=== PATIENT | female | born 1990 | race Caucasian/White ===

== ENCOUNTER 2019-01-02 13:30 | Inpatient (IN) | payer OTHER ==
--- NOTE | 2019-01-02 14:08 | HP ---
Past Medical History - Admission Chief Complaint: Labor pain History of Present Illness: 28 yo @ 39 weeks gestation with early labor sent for admission. She was seen in office today and was found to be 4cm dilated. There's also suspicion of macrosomia. History Source: Patient Limitations to Obtaining History: No Limitations - Past Medical History ...: 2 ...Para: 1 ...EDC by Amanda: 01/07/19 - Past Surgical History Past Surgical History: Yes: None Hx Myomectomy: No Hx Transabdominal Cerclage: No - Smoking History Smoking history: Never smoked Have you smoked in the past 12 months: No - Alcohol/Substance Use Hx Alcohol Use: No History of Substance Use: reports: None - Social History Usual Living Arrangement: Yes: With Spouse History of Recent Travel: No Home Medications - Allergies Allergies/Adverse Reactions: Allergies Allergy/AdvReac Type Severity Reaction Status Date / Time No Known Allergies Allergy Verified 06/11/15 01:51 - Home Medications Home Medications: Ambulatory Orders Vitamins ([facility]) - 1 tab PO DAILY 05/17/15 Family Disease History - Family Disease History Family History: Unremarkable Review of Systems - Review of Systems Constitutional: reports: No Symptoms Eyes: reports: No Symptoms HENT: reports: No Symptoms Neck: reports: No Symptoms Cardiovascular: reports: No Symptoms Respiratory: reports: No Symptoms Gastrointestinal: reports: No Symptoms Genitourinary: reports: Pain Breasts: reports: No Symptoms Reported Musculoskeletal: reports: No Symptoms Integumentary: reports: No Symptoms Neurological: reports: No Symptoms Endocrine: reports: No Symptoms Hematology/Lymphatic: reports: No Symptoms Psychiatric: reports: No Symptoms Pain Intensity: 3 Physical Exam - Maternity Eyes: Yes: Conjunctiva Clear HENT: Yes: Atraumatic Neck: Yes: Supple Cardiovascular: Yes: Regular Rate and Rhythm Lungs: Clear to auscultation - Vaginal Exam/OB Speculum Exam: No Dilatation (cm): 4 Effacement (%): 70 Amniotic Membrane Status: Intact Presentation: Vertex/Position Station: -2 - Physical Exam Musculoskeletal: Yes: WNL Extremities: Yes: WNL ...Motor Strength: WNL Psychiatric: Yes: Alert, Oriented Problem List - Problems (1) 39 weeks gestation of Code(s): Z3A.39 - 39 WEEKS GESTATION OF Assessment/Plan 39 weeks gestation Suspicion of macrosomia Early labor Admit to L&D Analgesia as needed Anticipate
[2019-01-02 14:22] VITALS: BMI 39.6
[2019-01-02] MEDS: ELECTROLYTE-148 SOLN 1,000 ML IV SCH ×2 (14:40→19:45)
[2019-01-02] MEDS ORDERED: OXYTOCIN 30 UNITS in 0.9% NS 30 UNIT/500 ML INFUS.BAG IVPB SCH (15:45)
[2019-01-02 15:50] LABS: BASO % 0.3 % (0-2.0); HEMATOCRIT 39.4 % (32.4-45.2); HEMOGLOBIN 13.4 GM/dL (10.7-15.3); LYMPH % 14.9 % (8-40); MEAN CELL VOLUME 88.2 fl (80-96); MEAN PLT VOLUME 9.4 fl (7.5-11.1); MONO % 6.2 % (3.8-10.2); NEUT % 78.6 % (42.8-82.8); PLATELET COUNT 188 K/MM3 (134-434); RBC 4.47 M/mm3 (3.60-5.2); RDW 14.2 % (11.6-15.6); WHITE BLOOD COUNT 8.9 K/mm3 (4.0-10.0)
[2019-01-02 15:56] LABS: ANION GAP 7 MMOL/L (8-16); BLOOD UREA NITROGEN 10 mg/dL (7-18); CALCIUM 8.5 mg/dL (8.5-10.1); CHLORIDE 106 mmol/L (98-107); CO2 24 mmol/L (21-32); CREATININE 0.4 mg/dL (0.55-1.3); GLUCOSE,RANDOM 70 mg/dL (74-106); SODIUM 138 mmol/L (136-145)
[2019-01-02 16:35] LABS: INR 0.89 (0.83-1.09); PROTHROMBIN TIME (PATIENT) 10.5 SEC (9.7-13.0)
[2019-01-02 16:38] LABS: ACTIVATED PTT 26.6 SECONDS (25.2-36.5)
[2019-01-02] MEDS ORDERED: OXYTOCIN 30 UNITS in 0.9% NS 30 UNIT/500 ML INFUS.BAG IVPB ONE (16:42)
[2019-01-02] MEDS ORDERED: FENTANYL/BUPIVACAINE/NS/PF - PCEA - 50 ML DISP.SYRIN EP ONE ×2 (19:16→23:06)
[2019-01-02] MEDS ORDERED: NALOXONE HCL 0.4 MG/ML VIAL IVPUSH PRN (19:37)
[2019-01-02] MEDS ORDERED: LIDO 2%/EPI 1:200000 PRESRVFRE (20 ML SDVIAL) ONE (19:42)
[2019-01-02] MEDS: FENTANYL/BUPIVACAINE/NS/PF - PCEA - 50 ML DISP.SYRIN EP SCH (20:00)
[2019-01-02] MEDS ORDERED: PHENYLEPHRINE HCL 10 MG/1 ML SINGLE DOSE VIAL ONE (20:02)
[2019-01-02] MEDS ORDERED: BUPIVACAINE HCL/PF 0.25% (2.5MG/ML) 10 ML VIAL ONE (23:00)
[2019-01-02] MEDS ORDERED: LIDOCAINE HCL 1% PRESERVATIVE FREE - 30ML VIAL ONE (23:46)
[2019-01-02] MEDS ORDERED: OXYTOCIN 20 UNITS in 0.9% NS 20 UNIT/1,000 ML INFUS.BAG IV ONE (23:46)
[2019-01-03] MEDS ORDERED: BENZOCAINE 28 GM HEMORRHOIDAL OINTMENT TP PRN (00:32)
[2019-01-03] MEDS ORDERED: BENZOCAINE 20% 57 GM BOTTLE TP PRN (00:32)
[2019-01-03] MEDS ORDERED: BISACODYL 10 MG SUPP.RECT RC PRN (00:32)
[2019-01-03] MEDS ORDERED: METHYLERGONOVINE MALEATE 0.2 MG/1 ML AMP IM PRN (00:32)
[2019-01-03] MEDS ORDERED: WITCH HAZEL 50% (TUCKS) 40 PAD/JAR PAD TP PRN (00:32)
--- NOTE | 2019-01-03 00:36 | PN ---
Delivery - Delivery Vaginal Delivery: Spontaneous Type of Anesthesia: Epidural Episiotomy/Laceration: 1st degree EBL (cc): 300 Delivery, Single - Feeding Plan Initial Plan: Elected not to breastfeed exclusively throughout hospitalization Remarks - Remarks Remarks: Normal spontaneous vaginal delivery of a live infant girl over first degree laceration. Nose / Oropharynxnx suctioned @ perineum. Cord clamped and cut. Baby handed to nurse. Placenta expelled spontaneously intact. Laceration repaired with 2.0 chromic
[2019-01-03] MEDS ORDERED: OXYTOCIN 20 UNITS in 0.9% NS 20 UNIT/1,000 ML INFUS.BAG IV SCH (00:45)
[2019-01-03] MEDS ORDERED: ACETAMINOPHEN 325 MG TABLET (FP) ONE (00:55)
[2019-01-03] MEDS ORDERED: IBUPROFEN 600 MG TABLET (FP) PO ONE (00:55)
[2019-01-03] MEDS: ACETAMINOPHEN 325 MG TABLET (FP) PO PRN ×3 (00:59→20:46)
[2019-01-03] MEDS: IBUPROFEN 600 MG TABLET (FP) PO PRN ×3 (01:00→20:46)
[2019-01-03] MEDS ORDERED: PROMETHAZINE HCL 25 MG/1 ML VIAL IVPB PRN (02:46)
[2019-01-03] MEDS: FERROUS SO4 325 MG TABLET (FP) PO SCH ×2 (08:17→17:23)
--- NOTE | 2019-01-03 09:57 | PN ---
Post Progress Note - Subjective Subjective: PT seen/examined and doing well. VB decreasing. NO pain. Tolerating diet, ambulating, voiding. Type of Delivery: Vital Signs: Vital Signs Temperature 98.4 F 01/03/19 07:50 Pulse Rate 79 01/03/19 07:50 Respiratory Rate 20 01/03/19 07:50 Blood Pressure 138/81 01/03/19 07:50 O2 Sat by Pulse Oximetry (%) 99 01/02/19 23:45 Uterus: Yes: Fundus Firm Abdomen/GI: Yes: Abdomen soft Lochia: Yes: Rubra Lochia, amount: Small Extremities: Yes: Edema (1+ edema on B/L LE, nonpitting) Activity: Ambulating - Labs Labs: CBC WBC 8.9 K/mm3 (4.0-10.0) 01/02/19 14:50 RBC 4.47 M/mm3 (3.60-5.2) 01/02/19 14:50 Hgb 13.4 GM/dL (10.7-15.3) 01/02/19 14:50 Hct 39.4 % (32.4-45.2) D 01/02/19 14:50 MCV 88.2 fl (80-96) 01/02/19 14:50 MCH 30.0 pg (25.7-33.7) 01/02/19 14:50 MCHC 34.0 g/dl (32.0-36.0) 01/02/19 14:50 RDW 14.2 % (11.6-15.6) 01/02/19 14:50 Plt Count 188 K/MM3 (134-434) D 01/02/19 14:50 MPV 9.4 fl (7.5-11.1) 01/02/19 14:50 Absolute Neuts (auto) 7.0 K/mm3 (1.5-8.0) 01/02/19 14:50 Neutrophils % 78.6 % (42.8-82.8) 01/02/19 14:50 Lymphocytes % 14.9 % (8-40) 01/02/19 14:50 Monocytes % 6.2 % (3.8-10.2) 01/02/19 14:50 Eosinophils % 0.0 % (0-4.5) D 01/02/19 14:50 Basophils % 0.3 % (0-2.0) 01/02/19 14:50 Nucleated RBC % 0 % (0-0) 01/02/19 14:50 Problem List - Problems (1) (normal spontaneous vaginal delivery) Code(s): O80 - ENCOUNTER FOR FULL-TERM UNCOMPLICATED DELIVERY Assessment/Plan routine care regular diet ambulation PO pain meds
[2019-01-03] MEDS ORDERED: DIPHTH,PERTUSS(ACELL),TET 0.5 ML DISP.SYRIN IM ONE (10:00)
[2019-01-03] MEDS: PRENATAL VITAMINS W/ FOLIC ACID TABLET (FP) PO SCH (11:40)
[2019-01-04 06:24] LABS: BASO % 0.3 % (0-2.0); EOS % 0.5 % (0-4.5); HEMATOCRIT 34.7 % (32.4-45.2); HEMOGLOBIN 11.5 GM/dL (10.7-15.3); LYMPH % 32.6 % (8-40); MCH 29.6 pg (25.7-33.7); MCHC 33.2 g/dl (32.0-36.0); MEAN CELL VOLUME 89.1 fl (80-96); MONO % 5.8 % (3.8-10.2); NEUT % 60.8 % (42.8-82.8); PLATELET COUNT 143 K/MM3 (134-434); RBC 3.89 M/mm3 (3.60-5.2); RDW 14.7 % (11.6-15.6); WHITE BLOOD COUNT 8.7 K/mm3 (4.0-10.0)
[2019-01-04] MEDS: FENTANYL/BUPIVACAINE/NS/PF - PCEA - 50 ML DISP.SYRIN EP SCH (07:21)
--- NOTE | 2019-01-04 09:07 | PN ---
Post Note - Post Date of Delivery: 01/03/19 Vital Signs: Vital Signs - 24 hr 01/03/19 01/03/19 01/03/19 13:59 17:30 21:00 Temperature 98.1 F 98.4 F 98.3 F Pulse Rate 85 96 H 85 Respiratory 20 20 20 Rate Blood Pressure 134/71 124/79 116/77 Labs: Laboratory Results - last 24 hr 01/02/19 01/04/19 14:50 05:54 WBC 8.7 RBC 3.89 Hgb 11.5 Hct 34.7 MCV 89.1 MCH 29.6 MCHC 33.2 RDW 14.7 Plt Count 143 D MPV 9.0 Absolute Neuts (auto) 5.3 Neutrophils % 60.8 D Lymphocytes % 32.6 D Monocytes % 5.8 Eosinophils % 0.5 D Basophils % 0.3 Nucleated RBC % 0 RPR Titer Nonreactive - Subjective Subjective: No Complaints, Ambulating, No Nausea or vomiting - Objective Afebrile: No Breast: Not engorged Abdomen: Soft, Non-tender Uterus: Fundus firm Vagina: Scant lochia Extremities: Non-tender - Assessment/Plan (1) (normal spontaneous vaginal delivery) Assessment: S/P Normal Plan: Routine Care
[2019-01-04] MEDS: FERROUS SO4 325 MG TABLET (FP) PO SCH ×2 (10:01→17:22)
[2019-01-04] MEDS: PRENATAL VITAMINS W/ FOLIC ACID TABLET (FP) PO SCH (10:01)
[2019-01-04] MEDS ORDERED: SENNOSIDES/DOCUSATE COMBO (SENNA PLUS) TABLET (UD) PO PRN (22:00)
[2019-01-05] MEDS: PRENATAL VITAMINS W/ FOLIC ACID TABLET (FP) PO SCH (09:03)
[2019-01-05] MEDS: FERROUS SO4 325 MG TABLET (FP) PO SCH (09:03)
[2019-01-05 09:13] VITALS: BP 118/78; PULSE 94; TEMP 98.4
== END 2019-01-05 11:00 | disposition home or self-care (01) | DRG 807 ==
LOC: JLDR 13:30 → J3W 01-03 02:10
PROVIDERS: ADMIT Obstetrics & Gynecology; ATTEND Obstetrics & Gynecology
PROC: 10E0XZZ Delivery of Products of Conception, External Approach (ICD-10-PCS; principal; 2019-01-03)
PROC: 0HQ9XZZ Repair Perineum Skin, External Approach (ICD-10-PCS; 2019-01-03)
DX: O36.63X0 Maternal care for excessive fetal growth, third trimester, not applicable or unspecified (principal); Z37.0 Single live birth; O70.0 First degree perineal laceration during delivery; Z3A.39 39 weeks gestation of pregnancy
CPT/HCPCS: 36415; 59409; 80048; 85025; 85610; 85730; 86593; 86850; 86900; 86901; 90715